=== PATIENT | female | born 1980 | race Two or more races ===

== ENCOUNTER 2024-06-25 23:05 | Emergency (ER) | payer SELFPAY ==
[2024-06-25] MEDS ORDERED: Ipratropium/Albuterol 3 ML NEB ONE (23:38)
[2024-06-25] MEDS ORDERED: Albuterol 2.5 MG (3 mL) NEB ONE (23:38)
[2024-06-26 00:02] LABS: #Basophils 0.03 10x3/uL (0.0-0.2); #Eosinophils 0.34 10x3/uL (0.0-0.5); #Monocytes 0.51 10x3/uL (0.0-1.1); #Neutrophils 5.19 10x3/uL (1.5-8.4); %Basophils 0.4 % (0.0-2.0); %Eosinophils 4.8 % (0.0-6.0); %Lymphocytes 14.6 % (18.0-47.0); %Monocytes 7.1 % (0.0-10.0); %Neutrophils 72.7 % (40.0-75.0); Hematocrit 39.2 % (34.9-44.5); Hemoglobin 12.3 g/dL (12.0-15.5); Mean Corpuscular HGB CONC 31.4 g/dL (32.0-36.0); Mean Corpuscular Hemoglobin 26.3 pg (27.0-33.0); Mean Corpuscular Volume 83.9 fL (81.6-98.3); Mean Platelet Volume 10.2 fL (7.4-10.4); Platelet Count 297 10x3/uL (150-450); RBC Distribution Width 13.9 % (11.5-14.5); Red Blood Cell (RBC) Count 4.67 10x6/uL (3.90-5.03); White Blood Cell (WBC) Count 7.1 10x3/uL (3.5-10.5)
[2024-06-26] MEDS ORDERED: methylPREDNISolone Sod Succ/PF 125 MG/2 ML VIAL ONE (00:02)
[2024-06-26 00:08] LABS: ALT (SGPT) 17 U/L (8-55); AST (SGOT) 18 U/L (5-34); Albumin 3.3 g/dL (3.5-5.0); Alkaline Phosphatase 85 U/L (40-110); Anion Gap 13 mmol/L (10-20); BUN (Urea Nitrogen) 13 mg/dL (7.0-18.7); Bilirubin, Total 0.3 mg/dL (0.2-1.2); Calc. Creatinine Clearance 0 mL/min (70-130); Calcium 8.8 mg/dL (7.8-10.44); Carbon Dioxide 22 mmol/L (22-29); Chloride 107 mmol/L (98-107); Estimated GFR 92; Globulin 4.2 g/dL (2.4-3.5); Glucose 107 mg/dL (70-105); Potassium 3.8 mmol/L (3.5-5.1); Protein, Total 7.5 g/dL (6.0-8.3); Sodium 138 mmol/L (136-145)
[2024-06-26] MEDS ORDERED: Albuterol 2.5 MG (3 mL) NEB ONE (01:11)
[2024-06-26] MEDS ORDERED: Ipratropium/Albuterol 3 ML NEB ONE (01:11)
== END 2024-06-26 02:26 | disposition home or self-care (01) ==
LOC: CSHERS 23:05
DX: J98.01 Acute bronchospasm (principal)
CPT/HCPCS: 71045; 80053; 85025; 87428; 93005; 94640; 96374; J2919; J7611; J7620